=== PATIENT | female | born 1995 | race Hispanic/Latino ===

== ENCOUNTER 2022-10-19 13:47 | Emergency (ER) | payer OTHER ==
[2022-10-19] MEDS ORDERED: Lidocaine 1% w/Epinephrine 1:100K 20 ML VIAL ONE (14:13)
[2022-10-19] MEDS ORDERED: Boostrix 0.5 ML (Tdap) VIAL (>/=7 yrs of age) ONE (14:13)
[2022-10-19] MEDS ORDERED: Bacitracin 1 PK ONE (16:17)
== END 2022-10-19 16:35 | disposition home or self-care (01) ==
LOC: MADERS 13:47
DX: S81.021A Laceration with foreign body, right knee, initial encounter (principal); W19.XXXA Unspecified fall, initial encounter; Y93.01 Activity, walking, marching and hiking; Z23 Encounter for immunization
CPT/HCPCS: 12032; 90471; 90715